=== PATIENT | female | born 1995 | race Caucasian/White ===

== ENCOUNTER 2017-08-15 22:12 | Emergency (ER) | payer BC ==
[~2017-08-15] VITALS: Ht 162.6 cm; Wt 122.5 kg
[~2017-08-15 22:12] MED LIST: BIRTH CONTROL PO; OXYC-865 PO
--- NOTE | 2017-08-15 22:14 | ER Report ---
History and Physical Time Seen By MD: 22:13 HPI/ROS CHIEF COMPLAINT: Fever HISTORY OF PRESENT ILLNESS: 22-year-old female presents ambulatory to the ER complaining of fever, body aches, headache and a frequent cough for approximately 36 hours. Patient has exposure to the flu. Patient's been trying [id number] medication without relief of her symptoms. Patient notes no nausea or vomiting. Patient denies photophobia or stiff neck. Patient notes a mild sore throat. She's had no diarrhea or dysuria. REVIEW OF SYSTEMS: Respiratory: As above Cardiovascular: No chest pain, no palpitations. Gastrointestinal: No vomiting, no abdominal pain. Musculoskeletal: No back pain. Allergies: Coded Allergies: Penicillins (Verified Allergy, Intermediate, ITCHING, 08/15/17) SWELLING AND REDNESS; PATIENT STATES SHE CAN STILL BREATH IF EXPOSED Home Meds Active Scripts Promethazine Hcl (PROMETHAZINE HCL) 25 Mg Tablet, 25 MG PO Q4H Y for cough and nausea suppression, #14 TAB Prov:WINSOME MARTELL DO 08/15/17 Hydrocodone Bit/Acetaminophen (NORCO 5-325 TABLET) 1 Each Tablet, 1 EACH PO Q4H Y for pain and cough suppression, #12 TAB Prov:WNISOME MARTELL DO 08/15/17 Oseltamivir Phosphate (TAMIFLU) 75 Mg Cap, 75 MG FT BID for reduction of flu symptoms, #10 CAP Prov:WINSOME MARTELL DO 08/15/17 Reported Medications Fexofenadine Hcl (MALINI ALLERGY) 60 Mg Tablet, 30 MG PO BID 08/15/17 Doxylamine/Phenylep/Dm/Aspirin (PATITO-MAZIN DAY-NIGHT TAB EFF) 1 Each Tab.ef.seq, 1 EACH PO 08/15/17 Aspirin (ASPIRIN) 81 Mg Tab.chew, 81 MG PO QDAY, TAB.CHEW 08/15/17 Phenylephrine/Dm/Acetaminop/GG (Sudafed PE Pressure+Pain+Cold) 1 Each Tablet 08/15/17 Ibuprofen (IBUPROFEN) 200 Mg Capsule, 2 CAP PO Q6H, CAPSULE 08/15/17 [ Control] No Conflict Check, 1 TAB PO QDAY 06/15/17 Discontinued Scripts Oxycodone Hcl/Acetaminophen (PERCOCET 5-325 MG TABLET) 1 Each Tablet, 1-2 EACH PO Q4-6H for PAIN, #10 TAB 0 Refills Prov:GIGI KLEIN MD 06/15/17 Past Medical/Surgical History Past medical history: Wears corrective lenses history of iron deficiency anemia. Past surgical history hysterectomy 3 months ago, wisdom tooth extraction 2014, ganglionic cyst removal, left hand Reviewed Nurses Notes: Yes Old Medical Records Reviewed: Yes Constitutional Vital Sign - Last 24 Hours 08/15/17 08/15/17 08/15/17 08/15/17 22:12 22:15 22:17 22:30 Temp 103.0 Pulse ??? 144 Resp 20 B/P (MAP) 139/83 (101) 139/83 136/72 (93) Pulse Ox 95 O2 Delivery Room Air 08/15/17 08/15/17 08/15/17 22:42 23:00 23:12 Temp 101.0 Pulse 121 115 B/P (MAP) 133/75 (94) Pulse Ox 95 95 Physical Exam General Appearance: The patient is alert, has no immediate need for airway protection and no current signs of toxicity. Fever 103 HEENT: Pupils equal and round no injection. TMs normal, oropharynx no redness or exudate Respiratory: Chest is non tender, lungs are clear to auscultation. No wheezing or rails Cardiac: regular rate and rhythm Gastrointestinal: Abdomen is soft and non tender, no masses, bowel sounds normal. Musculoskeletal: Neck: Neck is supple and non tender. No lymphadenopathy, no meningismus Extremities have full range of motion and are non tender. Skin: No rashes or lesions. DIFFERENTIAL DIAGNOSIS: After history and physical exam differential diagnosis was considered for adult fever including but not limited to viral syndromes including influenza, urinary tract infection, pneumonia and sepsis. Medical Decision Making Data Points Laboratory Hematology Test 08/15/17 20:27 Influenza Virus Type A (PCR) Positive (NEGATIVE) Influenza Virus Type B (PCR) Negative (NEGATIVE) Chemistry Test 08/15/17 20:27 Influenza Virus Type A (PCR) Positive (NEGATIVE) Influenza Virus Type B (PCR) Negative (NEGATIVE) ED Course/Re-evaluation ED Course Patient was admitting to an examination room. H&P was done. The differential diagnoses was considered. Patient was treated symptomatically with Phenergan, Galax, and Motrin. A rapid influenza was performed which returned positive for influenza A. Patient was provided prescription for Tamiflu, Galax and Phenergan. She is advised to continue ibuprofen 600 mg 3 times daily and increase her fluid intake. Decision to Disposition Date: Aug 15, 2017 Decision to Disposition Time: 23:19 Depart Departure Latest Vital Signs Vital Signs Date Time Temp Pulse Resp B/P (MAP) Pulse Ox O2 Delivery O2 Flow Rate FiO2 08/15/17 23:12 101.0 115 95 08/15/17 23:00 133/75 (94) 08/15/17 22:17 20 Room Air Impression: Primary Impression: Influenza A Condition: Improved Disposition: HOME OR SELF-CARE New Scripts Promethazine Hcl (PROMETHAZINE HCL) 25 Mg Tablet 25 MG PO Q4H Y for cough and nausea suppression, #14 TAB Prov: WINSOME MARTELL DO 08/15/17 Hydrocodone Bit/Acetaminophen (NORCO 5-325 TABLET) 1 Each Tablet 1 EACH PO Q4H Y for pain and cough suppression, #12 TAB Prov: WINSOME MARTELL DO 08/15/17 Oseltamivir Phosphate (TAMIFLU) 75 Mg Cap 75 MG FT BID for reduction of flu symptoms, #10 CAP Prov: WINSOME MARTELL DO 08/15/17 Patient Instructions: Influenza (ED) Additional Instructions: Drink plenty of fluids Take ibuprofen 200 mg 3-4 tablets 3 times a day with food Take Tamiflu twice daily for 5 days Follow-up with your primary care if unimproved in 3-5 days WINSOME MARTELL DO Aug 15, 2017 22:14
[2017-08-15] MEDS ORDERED: IBUP200C71 PO (22:25)
[2017-08-15] MEDS ORDERED: DOXY1TAB2 PO (22:25)
[2017-08-15] MEDS ORDERED: FEXO-72 PO (22:25)
[2017-08-15] MEDS ORDERED: PHEN1TAB74 (22:25)
[2017-08-15] MEDS ORDERED: ASPI81TA94 PO (22:25)
[2017-08-15] MEDS ORDERED: APAP/HYDROCODONE 325/5 TAB PO ONE (22:30)
[2017-08-15] MEDS ORDERED: IBUPROFEN 800 MG TAB PO ONE (22:30)
[2017-08-15] MEDS ORDERED: PROMETHAZINE HCL 25 MG TAB PO ONE (22:30)
[2017-08-15 23:00] VITALS: BP 133/75
[2017-08-15] MEDS ORDERED: ACET/HYDROC 5/325MG TH ER ONLY 2 TAB/BOTTLE PO ONE (23:20)
[2017-08-15] MEDS ORDERED: OSELTAMIVIR PHOS 75 MG CAP PO ONE (23:20)
[2017-08-15] MEDS ORDERED: PROMETHAZINE HCL 25 MG TAB TH 2 TAB/BOTTLE PO ONE (23:20)
[2017-08-15] MEDS ORDERED: OSE75 FT (23:21)
[2017-08-15] MEDS ORDERED: HYDR-4309 PO (23:22)
[2017-08-15] MEDS ORDERED: PROM-110 PO (23:24)
== END 2017-08-15 23:29 | disposition home or self-care (01) ==
LOC: ER 22:15
DX: J09.X2 Influenza due to identified novel influenza A virus with other respiratory manifestations (principal)
CPT/HCPCS: 87502; 99282; Q0169